=== PATIENT | female | born 1955 | race Caucasian/White ===

== ENCOUNTER 2017-07-17 16:43 | Outpatient (CLI) | payer OTHER | END 2017-07-17 16:44 | disposition home or self-care (01) | LOC: BICRAD 16:43 | PROVIDERS: ATTEND Internal Medicine Pulmonary Disease | DX: R06.00 Dyspnea, unspecified (principal); R91.8 Other nonspecific abnormal finding of lung field | CPT/HCPCS: 71046 ==

== ENCOUNTER 2017-09-05 06:56 | Outpatient (CLI) | payer OTHER ==
--- NOTE | 2017-09-05 12:28 | NM ---
WHOLE BODY BONE SCAN WITH TRIPLE PHASE IMAGING OF THE PELVIS AND HIPS: HISTORY: A 61-year-old female with left hip pain, presence of left artificial hip joint, painful arthritic mir dware. Left hip replacement 1 year ago. RADIOPHARMACEUTICAL: 32 mCi Technetium 99m-MDP injected intravenously. FINDINGS: No increased blood flow or blood pooling is seen in the pelvis. Delayed images demonstrate photopeni a in the region of the left hip arthroplasty. There is mild uptake in the left hip joint on the xenia yed images consistent with postop changes. No other abnormal areas of tracer localization. Increased uptake in the shoulders and sternoclavicul ar joints are consistent with degenerative changes. No other abnormalities or tracer localization ar e seen. Tracer excretion to the kidneys within normal limits. IMPRESSION: No evidence of infection or loosening in the left hip prosthesis. POS: [facility]
== END 2017-09-05 06:57 | disposition home or self-care (01) ==
LOC: NM 06:56
PROVIDERS: ATTEND Specialist
DX: T84.84XA Pain due to internal orthopedic prosthetic devices, implants and grafts, initial encounter (principal); Z96.642 Presence of left artificial hip joint
CPT/HCPCS: 78315; A9503

== ENCOUNTER 2018-07-04 11:08 | Outpatient (CLI) | payer OTHER ==
--- NOTE | 2018-07-04 12:24 | RAD ---
CHEST 2 VIEWS: Date: 07/04/18 HISTORY: Dyspnea. COMPARISON: 02/14/07. FINDINGS: Cardiac silhouette and pulmonary vasculature are unremarkable. Lungs remain hyperinflated. Mediastinu m is midline. Pectus excavatum deformity of the sternum is apparent on the lateral view. No confluent air space consolidation, pneumothorax, or pleural fluid. IMPRESSION: Chronic hyperinflation. No active cardiopulmonary abnormalities are otherwise demonstrated. POS: [facility]
== END 2018-07-04 11:09 | disposition home or self-care (01) ==
LOC: RAD 11:08
PROVIDERS: ATTEND Internal Medicine Pulmonary Disease
DX: R06.00 Dyspnea, unspecified (principal); R91.8 Other nonspecific abnormal finding of lung field
CPT/HCPCS: 71046

== ENCOUNTER 2019-06-07 12:21 | Outpatient (CLI) | payer MEDICARE ==
--- NOTE | 2019-06-07 12:56 | RAD ---
TWO VIEWS CHEST: HISTORY: Chest congestion, headache, and difficulty breathing. Dyspnea. COMPARISON: 07/04/2018. FINDINGS: The cardiac silhouette and pulmonary vasculature are within normal limits. There are emphysematous c hanges seen in the upper lung zones. No consolidation or pleural fluid is seen. Lungs are otherwise clear. There has been no interval change when compared to the prior study. IMPRESSION: 1. Evidence of chronic obstructive pulmonary disease. 2. No acute cardiopulmonary process. POS: [facility]
== END 2019-06-07 12:22 | disposition home or self-care (01) ==
LOC: RAD 12:21
PROVIDERS: ATTEND Internal Medicine Pulmonary Disease
DX: R06.00 Dyspnea, unspecified (principal); J44.9 Chronic obstructive pulmonary disease, unspecified
CPT/HCPCS: 71046

== ENCOUNTER 2020-07-29 10:07 | Outpatient (CLI) | payer MEDICARE ==
--- NOTE | 2020-07-29 10:52 | RAD ---
EXAM: Chest 2 views: HISTORY: Dyspnea COMPARISON: 06/07/2019 FINDINGS: There is a normal-sized cardiomediastinal silhouette. There is no evidence of consolidation, mass, or pleural effusion. Hardware is seen in the lumbar spine. IMPRESSION: No evidence of acute cardiopulmonary disease
== END 2020-07-29 10:08 | disposition home or self-care (01) ==
LOC: BICRAD 10:07
PROVIDERS: ATTEND Internal Medicine Pulmonary Disease
DX: R06.00 Dyspnea, unspecified (principal)
CPT/HCPCS: 71046

== ENCOUNTER 2023-12-08 10:04 | Outpatient (CLI) | payer MEDICARE | END 2023-12-08 10:05 | disposition home or self-care (01) | LOC: BICMAMMO 10:04 | PROVIDERS: ATTEND Internal Medicine | DX: Z13.820 Encounter for screening for osteoporosis (principal); Z78.0 Asymptomatic menopausal state; M85.851 Other specified disorders of bone density and structure, right thigh; M85.852 Other specified disorders of bone density and structure, left thigh | CPT/HCPCS: 77080 ==